=== PATIENT | male | born 2000 | race Caucasian/White ===

== ENCOUNTER 2019-07-18 11:10 | Emergency (ER) | payer SELFPAY ==
[~2019-07-18] VITALS: Ht 170.2 cm; Wt 110.7 kg
[2019-07-18 11:36] VITALS: Ht 170.2 cm; Wt 110.7 kg
[2019-07-18 14:16] LABS: CARBON DIOXIDE 25.3 mmol/L (21-32); CHLORIDE SERUM 101 mmol/L (98-107); POTASSIUM SERUM 4.6 mmol/L (3.5-5.1); SODIUM SERUM 141 mmol/L (136-145)
[2019-07-18 14:17] LABS: ALBUMIN 4.4 g/dL (3.4-5.0); CALCIUM 9.9 mg/dL (8.5-10.1); GFR1 > 60 mL/min; GLUCOSE SERUM 370 mg/dL (74-106); TOTAL PROTEIN, SERUM 8.8 g/dL (6.4-8.2)
[2019-07-18 14:18] LABS: ALKALINE PHOSPHATASE 140 U/L (46-116); ALT/SGPT 58 U/L (16-63); AST/SGOT 26 U/L (15-37); BILIRUBIN TOTAL 0.6 mg/dL (0.20-1.00)
[2019-07-18 15:20] VITALS: BP 140/70
== END 2019-07-18 15:20 | disposition home or self-care (01) ==
LOC: ED 11:10
PROVIDERS: Emergency Medicine
DX: N48.1 Balanitis (principal); E11.9 Type 2 diabetes mellitus without complications
CPT/HCPCS: 82962; 87491; 87591; J7030